=== PATIENT | female | born 1975 ===

== ENCOUNTER 2016-10-17 18:04 | Emergency (ER) | payer OTHER ==
[2016-10-17 19:49] LABS: URINE BILIRUBIN NEGATIVE (NEGATIVE); URINE BLOOD 4+ (NEGATIVE); URINE GLUCOSE (UA) NEGATIVE (NEGATIVE); URINE LEUKOCYTE ESTERASE 1+ (NEGATIVE); URINE NITRITE NEGATIVE (NEGATIVE); URINE PROTEIN 1+ (NEGATIVE); URINE UROBILINOGEN NORMAL (0-1 mg/dl)
[2016-10-17 19:50] LABS: HCG,QUALITATIVE URINE NEGATIVE
[2016-10-17 19:52] LABS: URINE APPEARANCE CLOUDY; URINE COLOR RED
[2016-10-17 19:56] LABS: URINE BACTERIA FEW; URINE EPITHELIAL CELLS FEW /hpf; URINE RBC >100 /hpf
[2016-10-17] MEDS ORDERED: IBUPROFEN 600 MG TABLET ONE (20:11)
[2016-10-17 20:32] LABS: ABSOLUTE NEUTROPHIL COUNT 5.9 K/mm3 (1.8-7.7); BASO % 0.5 % (0.2-1.0); EOS # 0.2 (0.0-0.5); EOS % 2.4 % (0.9-2.9); HEMATOCRIT 37.3 % (37.0-47.0); HEMOGLOBIN 11.4 gm/l (12.0-16.0); IMM NEUT% 0.4 % (0-1); LYMPH # 1.8 (1.0-4.8); MEAN CELL VOLUME 76.3 fl (81.0-99.0); MEAN CORPUSCULAR HEMOGLOBIN 23.3 pg (27.0-31.0); MEAN CORPUSCULAR HGB CONC 30.6 g/dl (33.0-37.0); MEAN PLATELET VOLUME 8.3 fl (7.4-10.4); MONO # 0.6 (0.0-0.8); MONO % 6.7 % (4-12); PLATELET COUNT 384 K/mm3 (130-400)
[2016-10-17 20:47] LABS: INR 0.91; PROTHROMBIN TIME 9.6 SECONDS (9.3-11.4)
[2016-10-17 20:50] LABS: CALCIUM 9.4 mg/dL (8.6-10.3)
[2016-10-17 21:07] LABS: ANISOCYTOSIS 2+; PLATELET ESTIMATE NORMAL (NORMAL)
--- NOTE | 2016-10-18 07:42 | US ---
Exam: Complete pelvic ultrasound COMPARISON: 10/06/2016 INDICATION: Irregular bleeding and pelvic pain. FINDINGS: Transabdominal and transvaginal pelvic ultrasound was obtained. Uterus measures 10.6 x 5.3 x 7.5 cm. The appearance of the uterus is unchanged since examination 11 days ago. The endometrium is heterogeneous and thickened, particularly within the lower uterine segment, and the definition between the endometrium and myometrium is ill-defined. This makes it difficult to measure the endometrium although it does remain thickened, measuring up to 2.4 cm in bilayer thickness on the transvaginal exam. There is a focal hypoechoic, vascular area in the subendometrial anterior lower uterine segment as seen previously. Right ovary measures 2.7 x 2.8 x 2.1 cm and left ovary measures 4.4 x 2.8 x 2.3 cm. There is no cystic or solid ovarian mass. Blood flow is present within both ovaries. There is a minimal amount of free fluid in the pelvis, within physiologic range. IMPRESSION: Stable examination of the pelvis compared with the 10/06/2016 ultrasound. The endometrium remains thickened and ill-defined, along with a focal hypervascular subendometrial focus within the lower uterine segment. I assume patient has not recently miscarried. Differential considerations remain the same, with pathology on the endometrial hyperplasia to carcinoma spectrum considered most likely although adenomyosis is also an the differential diagnosis. Consider sonohysterogram, MRI and/or endometrial sampling for further evaluation. Preliminary report transmitted to the emergency department from [facility] at 2156 hours 10/17/2016.
== END 2016-10-17 22:30 | disposition home or self-care (01) ==
LOC: ED 18:04
DX: N93.9 Abnormal uterine and vaginal bleeding, unspecified (principal)
CPT/HCPCS: 81025; 85025; 87086; 80048; 85610; 81001; 76856; 76830; 99283 ×2; A9270